=== PATIENT | male | born 1960 | race Caucasian/White ===

== ENCOUNTER → 2022-07-19 | Outpatient (CLI) | payer OTHER ==
[~2022-07-19] MED LIST: ATOR1TAB19 PO; EZET10TA21; HYDR200T3; LEVO50TA5 PO; OMEG10002 PO; VITA100093 PO
== END ==
LOC: M LABSMTC 09:46
PROVIDERS: ATTEND Anesthesiology
DX: Z01.818 Encounter for other preprocedural examination (principal)

== ENCOUNTER 2022-07-22 09:24 | Day surgery (SDC) | payer OTHER ==
[~2022-07-22] VITALS: Ht 175.3 cm; Wt 91.5 kg
[~2022-07-22 09:24] MED LIST changes: +NS 1,000 ML IV ONE
[2022-07-22] MEDS ORDERED: propofoL 200 MG/20 ML VIAL As Ordered ONE ×2 (10:01→10:14)
[2022-07-22] MEDS ORDERED: LIDOCAINE 2% 100MG/5ML SDV (FOR ANES.) As Ordered ONE (10:01)
[2022-07-22 10:55] VITALS: BP 135/90
== END 2022-07-22 10:57 | disposition home or self-care (01) ==
LOC: M OPP 09:24
PROVIDERS: ATTEND Surgery
DX: Z12.11 Encounter for screening for malignant neoplasm of colon (principal); K57.30 Diverticulosis of large intestine without perforation or abscess without bleeding; Z79.02 Long term (current) use of antithrombotics/antiplatelets; Z79.890 Hormone replacement therapy; Z79.899 Other long term (current) drug therapy; E03.9 Hypothyroidism, unspecified; G43.909 Migraine, unspecified, not intractable, without status migrainosus; E78.00 Pure hypercholesterolemia, unspecified; Z87.891 Personal history of nicotine dependence; Z80.1 Family history of malignant neoplasm of trachea, bronchus and lung

== ENCOUNTER → 2024-01-25 | Outpatient (CLI) | payer OTHER ==
[~2024-01-25] MED LIST changes: -HYDR200T3; +HYDR200T46; -NS 1,000 ML IV ONE
== END ==
LOC: M SLEEP 20:00
PROVIDERS: ATTEND Internal Medicine
DX: G47.33 Obstructive sleep apnea (adult) (pediatric) (principal)

== ENCOUNTER → 2025-05-17 | Outpatient (CLI) | payer OTHER ==
[~2025-05-17] MED LIST changes: -EZET10TA21; +EZET10TA57
== END ==
LOC: M RAD 11:09
PROVIDERS: ATTEND Nurse Practitioner Family
DX: I25.10 Atherosclerotic heart disease of native coronary artery without angina pectoris (principal); I25.84 Coronary atherosclerosis due to calcified coronary lesion; Z87.891 Personal history of nicotine dependence

== ENCOUNTER → 2025-05-31 | Outpatient (CLI) | payer OTHER | LOC: M RAD 08:56 | PROVIDERS: ATTEND Nurse Practitioner Family | DX: R94.5 Abnormal results of liver function studies (principal) ==